=== PATIENT | male | born 1960 | race African-American/Black ===

== ENCOUNTER 2017-05-14 22:13 | Emergency (ER) | payer OTHER ==
[2017-05-14 22:40] VITALS: BP 168/84; PULSE 61; TEMP 97.9; BMI 27.8
--- NOTE | 2017-05-14 22:52 | PDOC ---
History of Present Illness - General Chief Complaint: Toothache Stated Complaint: ALLERGIC REACTION Time Seen by Provider: 05/14/17 22:51 History Source: Patient Exam Limitations: No Limitations - History of Present Illness Initial Comments: 05/14/17 22:52 56 yo M without any pmhx c/o right lower wisdom toothache 4 days which has worsened today. Patient states during November of this year, he was seen by a dentist who informed him that he needs a root canal which the patient hasn't return back to the dentist for the procedure. He was given amoxicillin. He took 1 dose of amoxicillin back in November. Shortly afterwards, patient states he had an ALLERGIC reaction causing pruritus and some shortness of breath. Approximately 4 days ago, patient started feeling 3/10 throbbing intermittent discomfort to the right lower wisdom tooth. Patient took Tylenol with some relief but this evening, he noticed some swelling to his right cheek causing right lower gum pain. Patient states he took 1 dose of his left over amoxicillin from November and again felt pruritus all over. Patient states his made him come to the emergency department to be examined. Patient denies fever, chills, nausea/vomiting. Patient denies difficulty eating or drinking. Patient denies tongue swelling, sensation of throat closing, sore throat, chest pain, shortness of breath. Patient states he will definitely see his dentist in 2 days from /Wednesday. Timing/Duration: other (x4d) Past History - Past Medical History Allergies/Adverse Reactions: Allergies Allergy/AdvReac Type Severity Reaction Status Date / Time No Known Drug Allergies Allergy Verified 05/14/17 22:40 Home Medications: Ambulatory Orders No Home Medications 0 dose .ROUTE UTDICT 09/12/13 Ondansetron [Zofran Odt -] 4 mg SL TID PRN #10 od.tablet 09/12/13 Oseltamivir Phosphate [Tamiflu -] 75 mg PO BID #10 capsule 09/12/13 Prednisone [Deltasone -] 10 mg PO DAILY #7 tablet 09/12/13 Clindamycin HCl 300 mg PO TID #30 capsule 05/14/17 Cardiac Disorders: Yes COPD: Yes (sacardosis) HTN: Yes (diet controlled) Thyroid Disease: No - Surgical History Orthopedic Surgery: Yes (right hip relacement) - Suicide/Smoking/Psychosocial Hx Smoking Status: No Smoking History: Never smoked Have you smoked in the past 12 months: No Number of Cigarettes Smoked Daily: 0 Hx Alcohol Use: No Drug/Substance Use Hx: No Substance Use Type: None Review of Systems - Review of Systems Able to Perform ROS?: Yes Comments:: 05/14/17 23:45 CONSTITUTIONAL: Absent: fever, chills, diaphoresis, generalized weakness, malaise, loss of appetite HEENT: Right lower wisdom toothache Absent: rhinorrhea, nasal congestion, throat pain, throat swelling, difficulty swallowing, mouth swelling, ear pain, eye pain, visual Changes CARDIOVASCULAR: Absent: chest pain, loss of consciousness, palpitations, irregular heart rate, peripheral edema RESPIRATORY: Absent: cough, shortness of breath, dyspnea with exertion, orthopnea, wheezing, stridor, hemoptysis GASTROINTESTINAL: Absent: abdominal pain, abdominal distension, nausea, vomiting, diarrhea, constipation, melena, hematochezia GENITOURINARY: Absent: dysuria, frequency, urgency, hesitancy, hematuria, flank pain, genital pain SKIN: Absent: rash, itching, pallor Is the patient limited Serbian proficient: No *Physical Exam - Vital Signs Last Vital Signs Temp Pulse Resp BP Pulse Ox 97.9 F 61 18 168/84 100 05/14/17 22:37 05/14/17 22:37 05/14/17 22:37 05/14/17 22:37 05/14/17 22:37 - Physical Exam Comments: 05/14/17 23:45 GENERAL: Well developed, well nourished. Awake and alert. No acute distress. HEENT: Normocephalic, atraumatic. PERRLA, EOMI. No conjunctival pallor. Sclera are non- icteric. Moist mucous membranes. Oropharynx is clear. NECK: Supple. Full ROM. No JVD. Carotid pulses 2+ and symmetric, without bruits. No thyromegaly. No lymphadenopathy. SKIN: Warm and dry. Normal capillary refill. No rashes. No jaundice. right lower wisdom tooth/pain on percussion. +apical disruption neg swelling/pain to lower gums slight soft/swelling right cheek *DC/Admit/Observation/Transfer Diagnosis at time of Disposition: Toothache - Discharge Dispostion Disposition: HOME Condition at time of disposition: Stable Admit: No - Prescriptions Prescriptions: Clindamycin HCl 300 mg PO TID #30 capsule - Referrals Referrals: Yahir Youngblood MD [Primary Care Provider] - - Patient Instructions Printed Discharge Instructions: DI for Tooth Decay, DI for Dental Pain Additional Instructions: YOU MUST FOLLOW UP WITH THE DENTIST BY WEDNESDAY Tylenol or Motrin as needed for pain Take your antibiotics/ clindamycin 300mg take 1 tablet three times a day for 10 days Return back to the emergency department for severe/persistent or worsening symptoms - Post Discharge Activity
[2017-05-14] MEDS ORDERED: CLINDAMYCIN 900 MG PREMIX IVPB 900 MG/50 ML BAG IVPB ONE ×2 (23:15→23:22)
--- NOTE | 2017-05-15 00:31 | PDOC ---
*Physical Exam - Vital Signs Last Vital Signs Temp Pulse Resp BP Pulse Ox 97.9 F 61 18 168/84 100 05/14/17 22:37 05/14/17 22:37 05/14/17 22:37 05/14/17 22:37 05/14/17 22:37 - Physical Exam Comments: 05/15/17 00:31 The patient was examined by [CHARLES Vu] under my direct supervision. I personally evaluated the patient. I concur with the above findings and the plan of care. ED Treatment Course - Medications Given in the ED: ED Medications Discontinued Medications Generic Name Dose Route Start Last Admin Trade Name Freq PRN Reason Stop Dose Admin Clindamycin Phosphate 900 mg in 50 mls @ 100 mls/hr 05/14/17 23:15 05/14/17 23:29 Cleocin 900 Mg Premix Ivpb - IVPB 05/14/17 23:44 100 mls/hr ONCE ONE Administration *DC/Admit/Observation/Transfer Diagnosis at time of Disposition: Toothache - Discharge Dispostion Disposition: HOME Condition at time of disposition: Stable - Prescriptions Prescriptions: Clindamycin HCl 300 mg PO TID #30 capsule - Referrals Referrals: Yahir Youngblood MD [Primary Care Provider] - - Patient Instructions Printed Discharge Instructions: DI for Tooth Decay, DI for Dental Pain Additional Instructions: YOU MUST FOLLOW UP WITH THE DENTIST BY WEDNESDAY Tylenol or Motrin as needed for pain Take your antibiotics/ clindamycin 300mg take 1 tablet three times a day for 10 days Return back to the emergency department for severe/persistent or worsening symptoms - Post Discharge Activity
== END 2017-05-14 23:50 | disposition home or self-care (01) ==
LOC: JER 22:13
DX: K02.9 Dental caries, unspecified (principal)
CPT/HCPCS: 99282-25

== ENCOUNTER 2019-06-02 21:04 | Emergency (ER) | payer OTHER ==
[2019-06-02 21:16] VITALS: BMI 27.8
--- NOTE | 2019-06-02 22:58 | PDOC ---
Attending Attestation - Resident Resident Name: Iron,Jaki - ED Attending Attestation I have performed the following: I have examined & evaluated the patient, The case was reviewed & discussed with the resident, I agree w/resident's findings & plan - HPI HPI: 06/02/19 23:27 Pt comes with cough and cold and fever; has been unable to eat x 2 days. Dehydrated and tachy and unwell appearing. Pt has a hx of sarcoidosis and his granddaughter was ill over the hoidays. Pt had throat pain and redness in the throat; but pain resolved with nyquil. Last advil was yesterday. No antipyretics today. - Physicial Exam PE: 06/02/19 23:30 febrile tachy pt appears unwell A+Ox3 mild distress lungs clear heart tachy abd soft NT ND no flank pain No swelling in extremities. - Medical Decision Making 06/02/19 23:29 Here pt was given motrin and tylenol. Fever is 100.4 orally; but pt feels much hotter and he has flushed skin. Labs sent strep and flu sent Hydration with 1L NSS motrin and tylenol in the ER 06/03/19 00:02 Pt is FLU A POSITIVE 06/03/19 00:03 Strep negative CBC normal chem pending 06/03/19 00:51 Chem is normal and pt feels great; ready to go home; no tamiflu as it has been 4 days already
--- NOTE | 2019-06-02 23:11 | PDOC ---
History of Present Illness - General Chief Complaint: Respiratory Stated Complaint: FEVER/COUGH Time Seen by Provider: 06/02/19 22:58 - History of Present Illness Initial Comments: 06/02/19 23:29 HPI: 59 y/o M with hx of pulmonary sarcoid presenting with sore throat and cough that started 3 days ago. He states his granddaughter was having URI like symptoms and since his contact with her, he has been having similar symptoms. Cough is productive of thick sputum. He also reports pleuritic chest pain in his mid/left sided chest during his severe coughing episodes; he denies chest pain at rest. He also now reprots nausea and whole body weakness and fatigue. He reports subjective fever. Denies abd pain, emesis, leg swelling, dysuria. PMHx: as noted above ROS: as noted SHx: Denies tobacco use; no alcohol use; no rec drugs Allergies: NKDA ROS: GENERAL/CONSTITUTIONAL: +fever, generalized weakness. HEAD, EYES, EARS, NOSE AND THROAT: No change in vision. No ear pain or discharge. +sore throat. CARDIOVASCULAR: +chest pain, shortness of breath RESPIRATORY: +cough; no wheezing, or hemoptysis. GASTROINTESTINAL: +nausea; no vomiting, diarrhea or constipation. GENITOURINARY: No dysuria, frequency, or change in urination. MUSCULOSKELETAL: No joint or muscle swelling or pain. No neck or back pain. SKIN: No rash NEUROLOGIC: No headache, vertigo, loss of consciousness, or change in strength/ sensation. ENDOCRINE: No increased thirst. No abnormal weight change HEMATOLOGIC/LYMPHATIC: No anemia, easy bleeding, or history of blood clots. ALLERGIC/IMMUNOLOGIC: No hives or skin allergy. PE: GENERAL: Awake, alert, and fully oriented, appears ill HEAD: No signs of trauma, normocephalic, atraumatic EYES: EOMI, sclera anicteric, conjunctiva clear ENT: Auricles normal inspection, hearing grossly normal, nares patent, oropharynx clear without exudates. Moist mucosa NECK: Normal ROM, no lymphadenopathy LUNGS: No increased work of breathing, symmetrical chest rise, clear to auscultation bilaterally, no wheezes, crackles or rhonchi HEART: Regular rate and rhythm, normal S1 and S2, no murmur, peripheral pulses 2 + and equal bilaterally. ABDOMEN: Soft, nondistended, nontender, normoactive bowel sounds. No guarding, no rebound. No masses. No CVAT MUSCULOSKELETAL: Normal inspection, FROM NEUROLOGICAL: Cranial nerves II through XII grossly intact. Normal speech, normal gait, no focal sensorimotor deficits SKIN: Warm, Dry, normal turgor, no rashes or lesions noted 06/03/19 00:31 Past History - Past Medical History Allergies/Adverse Reactions: Allergies Allergy/AdvReac Type Severity Reaction Status Date / Time No Known Drug Allergies Allergy Verified 06/02/19 21:15 Home Medications: Ambulatory Orders No Home Medications 0 dose .ROUTE UTDICT 09/12/13 Ondansetron [Zofran Odt -] 4 mg SL TID PRN #10 od.tablet 09/12/13 Oseltamivir Phosphate [Tamiflu -] 75 mg PO BID #10 capsule 09/12/13 predniSONE [Deltasone -] 10 mg PO DAILY #7 tablet 09/12/13 Clindamycin HCl 300 mg PO TID #30 capsule 05/14/17 Cardiac Disorders: Yes COPD: Yes (sacardosis) HTN: Yes (diet controlled) Thyroid Disease: No - Surgical History Orthopedic Surgery: Yes (right hip relacement) - Psycho Social/Smoking Cessation Hx Smoking Status: No Smoking History: Never smoked Have you smoked in the past 12 months: No Number of Cigarettes Smoked Daily: 0 Hx Alcohol Use: No Drug/Substance Use Hx: No Substance Use Type: None *Physical Exam - Vital Signs Last Vital Signs Temp Pulse Resp BP Pulse Ox 100.4 F H 90 18 169/95 99 06/02/19 21:12 06/02/19 21:12 06/02/19 21:12 06/02/19 21:12 06/02/19 21:12 ED Treatment Course - LABORATORY CBC & Chemistry Diagram: 06/02/19 23:20 06/02/19 23:20 Medical Decision Making - Medical Decision Making 06/03/19 00:30 59 y/o M with hx of pulmonary sarcoid presenting with sore throat and cough that started 3 days ago associated with fever and generalized weakness. T 100.4 , HR 90. PE with ill appearnce -cbc, cmp, rapid strep, rapid flu -tylenol, motrin, ivf 06/03/19 00:32 flu positive but patient outside window will DC home with conservative management and return pcxns as well as contact precuations patient agreeable and all questions answered Discharge - Discharge Information Problems reviewed: Yes Clinical Impression/Diagnosis: Influenza A Condition: Stable Disposition: HOME - Follow up/Referral - Patient Discharge Instructions Patient Printed Discharge Instructions: DI for Influenza -- Adult Additional Instructions: Additional Instructions: Please return to the emergency department with any new or worsening symptoms or concerns worsening pain, fainting, seizure. Please follow up with your primary care physician within 72 hours for re- evaluation Please continue to take tylenol 650mg every 6-8hrs and motrin 600mg every 6-8 hours for symptomatic control. Please avoid vulnerable populations to prevent risk of disease transmission including the elderly, children, women. - Post Discharge Activity
[2019-06-02] MEDS ORDERED: ACETAMINOPHEN 500 MG TABLET (FP) PO ONE (23:17)
[2019-06-02] MEDS ORDERED: IBUPROFEN 600 MG TABLET (FP) PO ONE ×2 (23:17→23:23)
[2019-06-02] MEDS ORDERED: SODIUM CHLORIDE 0.9% 500 ML INFUS.BAG IV ONE (23:18)
[2019-06-02] MEDS ORDERED: ACETAMINOPHEN 325 MG TABLET (FP) ONE (23:23)
[2019-06-02 23:37] LABS: BASO % 0.5 % (0-2.0); EOS % 0.4 % (0-4.5); HEMATOCRIT 40.9 % (35.4-49); HEMOGLOBIN 13.6 GM/dL (11.7-16.9); LYMPH % 14.3 % (8-40); MCH 29.2 pg (25.7-33.7); MCHC 33.1 g/dl (32.0-35.9); MEAN CELL VOLUME 88.2 fl (80-96); MEAN PLT VOLUME 7.7 fl (7.5-11.1); MONO % 13.8 % (3.8-10.2); PLATELET COUNT 148 K/MM3 (134-434); RBC 4.64 M/mm3 (4.00-5.60); RDW 14.3 % (11.9-15.9); WHITE BLOOD COUNT 5.6 K/mm3 (4.0-10.0)
[2019-06-03 00:08] LABS: ALBUMIN 3.4 g/dl (3.4-5.0); BILIRUBIN,TOTAL 1.3 mg/dL (0.2-1); BLOOD UREA NITROGEN 16.9 mg/dL (7-18); CALCIUM 8.7 mg/dL (8.5-10.1); POTASSIUM 3.8 mmol/L (3.5-5.1); TOT PROT 8.6 g/dl (6.4-8.2)
[2019-06-03 01:16] VITALS: BP 118/89; PULSE 76; TEMP 99.2
== END 2019-06-03 01:10 | disposition home or self-care (01) ==
LOC: JER 21:04
DX: R07.0 Pain in throat (principal); J09.X2 Influenza due to identified novel influenza A virus with other respiratory manifestations; I10 Essential (primary) hypertension; D86.0 Sarcoidosis of lung; Z96.641 Presence of right artificial hip joint
CPT/HCPCS: 36415; 71045-TC-FY; 80053; 85025; 87070; 87804; 87880; 99283-25

== ENCOUNTER 2024-07-21 20:05 | Emergency (ER) | payer OTHER ==
[2024-07-21 20:20] VITALS: RESP 18; TEMP 98; BMI 28.5
[2024-07-21 21:34] LABS: RBC 5.22 M/mm3 (4.00-5.60)
[2024-07-21 21:35] LABS: BASO % 0.5 % (0-2.0); HEMOGLOBIN 15.6 GM/dL (11.7-16.9); LYMPH % 20.9 % (8-40); MCH 29.9 pg (25.7-33.7); MCHC 33.3 g/dl (32.0-35.9); MEAN CELL VOLUME 89.9 fl (80-96); MEAN PLT VOLUME 8.2 fl (7.5-11.1); MONO % 12.6 % (3.8-10.2); PLATELET COUNT 168 10^3/uL (134-434); RDW 13.5 % (11.9-15.9)
[2024-07-21 21:49] LABS: ACTIVATED PTT 30.3 SECONDS (25.2-36.5); INR 1.06 (0.83-1.09); PROTHROMBIN TIME (PATIENT) 11.6 SEC (9.7-13.0)
[2024-07-21 21:53] VITALS: BP 160/76; PULSE 59
[2024-07-21] MEDS ORDERED: HYDROCHLOROTHIAZIDE 25 MG TABLET (FP) ONE (21:57)
[2024-07-21] MEDS ORDERED: LOSARTAN POTASSIUM 50 MG TABLET ONE (21:57)
[2024-07-21 22:00] LABS: POTASSIUM 3.7 mmol/L (3.5-5.1)
[2024-07-21 22:02] LABS: CALCIUM 9.1 mg/dL (8.5-10.1)
[2024-07-21] MEDS: HYDROCHLOROTHIAZIDE 25 MG TABLET (FP) PO ONE (22:02)
[2024-07-21] MEDS: LOSARTAN POTASSIUM 50 MG TABLET PO ONE (22:02)
[2024-07-21 22:03] LABS: BLOOD UREA NITROGEN 24.7 mg/dL (7-18)
[2024-07-21 22:08] LABS: BILIRUBIN,TOTAL 1.2 mg/dL (0.2-1); TOT PROT 8.1 g/dl (6.4-8.2)
== END 2024-07-21 23:28 | disposition home or self-care (01) ==
LOC: JER 20:05
DX: R06.02 Shortness of breath (principal); F41.9 Anxiety disorder, unspecified; R06.4 Hyperventilation
CPT/HCPCS: 36415; 71045-TC-FY; 80053; 84484; 85025; 85610; 85730; 93005; 93010; 99285-25